=== PATIENT | female | born 1970 | race Caucasian/White ===

== ENCOUNTER 2020-06-10 10:53 | Outpatient (CLI) | payer BC | END 2020-06-10 10:54 | disposition home or self-care (01) | LOC: CSHMRI 10:53 | PROVIDERS: ATTEND Otolaryngology Otolaryngic Allergy | DX: H90.42 Sensorineural hearing loss, unilateral, left ear, with unrestricted hearing on the contralateral side (principal) | CPT/HCPCS: 70553 ==

== ENCOUNTER 2021-08-29 08:33 | Outpatient (CLI) | payer BC | END 2021-08-29 08:34 | disposition home or self-care (01) | LOC: CSHMAMMO 08:33 | PROVIDERS: ATTEND Family Medicine | DX: Z12.31 Encounter for screening mammogram for malignant neoplasm of breast (principal); Z98.82 Breast implant status | CPT/HCPCS: 77063; 77067 ==